=== PATIENT | male | born 1960 | race Caucasian/White ===

== ENCOUNTER 2018-07-03 16:52 | Emergency (ER) | payer OTHER ==
[~2018-07-03] VITALS: Ht 188 cm; Wt 131.7 kg
--- NOTE | 2018-07-03 17:09 | NUR ---
PT AMBULATES TO BED 2
--- NOTE | 2018-07-03 17:10 | NUR ---
58Y/M BIB C/O URINARY RETENSION AND REQUEST FOR FLOMAX WHICH HE RAN OUT; PREFER PILL OVER CATHETER. PT IS AAOX4, VSS AT THIS TIME, BED DOWN, BEDRAIL UP X 1. ER MD AWARE AND NOTIFIED OF PT STATUS AT THIS TIME. HX; BPH, HTN, BYPASS SURGERY X5 OVER 2 YRS AGO, HYPERCHOLESTEROL RX; ENALAPRIL, VASOTEX, LASIX, MTOPROLOL, TAMSULOSIN, BUMETANIDE, SIMVASTATIN ASA
[2018-07-03 17:11] VITALS: BP 164/94
[2018-07-03] MEDS ORDERED: TAMSULOSIN 0.4 MG CAP PO ONE (17:20)
[2018-07-03] MEDS ORDERED: TAMSULOSIN 0.4 MG CAP ONE (17:41)
--- NOTE | 2018-07-03 18:00 | NUR ---
Patient being evaluated by physician at bedside.
[2018-07-03 18:23] VITALS: BP 166/105
--- NOTE | 2018-07-03 18:23 | NUR ---
Patient discharged with v/s stable. Written and verbal after care instructions given and explained. Patient alert, oriented and verbalized understanding of instructions. Ambulatory with steady gait. All questions addressed prior to discharge. ID band removed. Patient advised to follow up with PMD. Rx of flomax given. Patient educated on indication of medication including possible reaction and side effects. Opportunity to ask questions provided and answered.
== END 2018-07-03 18:23 | disposition home or self-care (01) ==
LOC: MED 16:52
DX: R33.9 Retention of urine, unspecified (principal); R10.30 Lower abdominal pain, unspecified; E78.00 Pure hypercholesterolemia, unspecified; N40.0 Benign prostatic hyperplasia without lower urinary tract symptoms; F17.200 Nicotine dependence, unspecified, uncomplicated; Z95.1 Presence of aortocoronary bypass graft
CPT/HCPCS: 99283

== ENCOUNTER 2019-05-25 16:45 | Emergency (ER) | payer OTHER ==
[~2019-05-25] VITALS: Ht 185.4 cm; Wt 134.9 kg
[2019-05-25 17:05] VITALS: BP_SYST 156; BP_SYST 176; BP_DIAS 114; BP_DIAS 86
[2019-05-25] MEDS ORDERED: FUROSEMIDE 40 MG/4 ML VIAL IVP ONE (17:15)
[2019-05-25] MEDS ORDERED: ALBUTEROL SULFATE/IPRATROPIU 3 ML SOL IH ONE (17:15)
[2019-05-25] MEDS ORDERED: ALBUTEROL 0.083% 2.5 MG/3 ML NEBU INH ONE (17:15)
[2019-05-25 17:46] LABS: BASOPHILS % (AUTO) 0.4 % (0.0-2.0); EOSINOPHILS # (AUTO) 0.3 K/uL (0-0.4); HEMATOCRIT 42.1 % (36-52); HEMOGLOBIN 13.7 g/dL (12.0-18.0); LYMPHOCYTES # (AUTO) 1.9 K/uL (2.0-11.5); LYMPHOCYTES % (AUTO) 17.5 % (20.5-51.1); MEAN CORPUSCULAR HEMOGLOBIN 28 pg (27-31); MEAN CORPUSCULAR HGB CONC 33 g/dL (33-37); MEAN CORPUSCULAR VOLUME 86.2 fL (80-94); MONOCYTES # (AUTO) 0.9 K/uL (0.8-1.0); MONOCYTES % (AUTO) 8.6 % (1.7-9.3); NEUTROPHILS # (AUTO) 7.5 K/uL (1.8-7.7); NEUTROPHILS % (AUTO) 70.5 % (42.2-75.2); PLATELET COUNT (AUTO) 246 K/uL (140-450); RED BLOOD CELL COUNT(AUTO) 4.88 MIL/uL (4.20-6.10); RED CELL DISTRIBUTION WIDTH 15.2 % (11.6-13.7); WHITE BLOOD COUNT (AUTO) 10.7 K/uL (4.8-10.8)
[2019-05-25 18:08] LABS: ANION GAP 13.1 (8-16); CARBON DIOXIDE 26.9 mmol/L (21-32); CREATININE 1.5 mg/dL (0.7-1.3)
[2019-05-25 18:09] LABS: TOTAL BILIRUBIN 0.4 mg/dL (0.0-1.0)
[2019-05-25 18:56] VITALS: BP 153/92
== END 2019-05-25 18:56 | disposition home or self-care (01) ==
LOC: MED 16:45
DX: I11.0 Hypertensive heart disease with heart failure (principal); I50.9 Heart failure, unspecified; F17.210 Nicotine dependence, cigarettes, uncomplicated; Z95.1 Presence of aortocoronary bypass graft
CPT/HCPCS: 36415; 71045; 80053; 83880; 84484; 85025; 93005; 94640; 94760; 96374; 99284; J1940; J7613; J7620; Q0092

== ENCOUNTER 2019-05-30 19:10 | Inpatient (IN) | payer OTHER ==
[~2019-05-30] VITALS: Ht 188 cm; Wt 136.5 kg
[2019-05-30 19:15] VITALS: BP 109/72
--- NOTE | 2019-05-30 19:15 | NUR ---
to bed # 02 ambulatory
--- NOTE | 2019-05-30 19:20 | NUR ---
DR HANKS EXAMING PT AT THIS TIME
--- NOTE | 2019-05-30 19:20 | NUR ---
59 Y/O MALE PRESENTS TO ED, C/O DIFFICULTY BREATHING. PT STATES IT STARTED 5 DAYS AGO. PT HAS HX OF CHF, COMPLIANT WITH LASIX, NO EDEMA NOTED. PT DENIES ANY CHEST PAIN. PT PLACED ON 2L O2 SAT AT 95%. PT VSS. ERMD AWARE. WILL CONTINUE TO MONITOR.
[2019-05-30] MEDS ORDERED: ALBUTEROL 0.083% 2.5 MG/3 ML NEBU INH ONE (19:25)
[2019-05-30] MEDS ORDERED: FUROSEMIDE 40 MG/4 ML VIAL IVP ONE (19:25)
[2019-05-30] MEDS ORDERED: ALBUTEROL SULFATE/IPRATROPIU 3 ML SOL IH ONE (19:25)
--- NOTE | 2019-05-30 19:30 | NUR ---
IV LINE ESTABLISHED. PATENT AND INTACT. R FOREARM 20G. TOLERATED WELL. AND LABS COLLECTED.
--- NOTE | 2019-05-30 19:41 | NUR ---
RT AT BEDSIDE
[2019-05-30 19:56] LABS: BASOPHILS # (AUTO) 0.1 K/uL (0.00-0.22); EOSINOPHILS # (AUTO) 0.1 K/uL (0-0.4); EOSINOPHILS % (AUTO) 0.8 % (0.0-4.0); HEMATOCRIT 40.6 % (36-52); HEMOGLOBIN 13.4 g/dL (12.0-18.0); LYMPHOCYTES # (AUTO) 2.8 K/uL (2.0-11.5); LYMPHOCYTES % (AUTO) 19.7 % (20.5-51.1); MEAN CORPUSCULAR HEMOGLOBIN 29 pg (27-31); MEAN CORPUSCULAR HGB CONC 33 g/dL (33-37); MEAN CORPUSCULAR VOLUME 86.8 fL (80-94); MONOCYTES # (AUTO) 1.1 K/uL (0.8-1.0); MONOCYTES % (AUTO) 7.6 % (1.7-9.3); NEUTROPHILS % (AUTO) 70.9 % (42.2-75.2); PLATELET COUNT (AUTO) 249 K/uL (140-450); RED BLOOD CELL COUNT(AUTO) 4.68 MIL/uL (4.20-6.10); RED CELL DISTRIBUTION WIDTH 15.4 % (11.6-13.7); WHITE BLOOD COUNT (AUTO) 14.2 K/uL (4.8-10.8)
[2019-05-30 20:07] LABS: ANION GAP 14.4 (8-16); CARBON DIOXIDE 26.2 mmol/L (21-32); CREATININE 1.5 mg/dL (0.7-1.3); POTASSIUM 3.6 mmol/L (3.5-5.1)
[2019-05-30 20:13] LABS: TOTAL BILIRUBIN 0.3 mg/dL (0.0-1.0)
[2019-05-30] MEDS ORDERED: MORPHINE SULFATE 2 MG/ML SYR IVP PRN (22:20)
[2019-05-30] MEDS ORDERED: ACETAMINOPHEN 325 MG TAB PO PRN (22:20)
[2019-05-30] MEDS ORDERED: DOCUSATE SODIUM 100 MG GELCAP PO PRN (22:20)
[2019-05-30] MEDS ORDERED: ONDANSETRON 4 MG/2 ML VIAL IM/IVP PRN (22:20)
[2019-05-30] MEDS ORDERED: HYDROcodone/APAP 7.5/325 MG 1 TAB PO PRN (22:20)
--- NOTE | 2019-05-30 23:28 | NUR ---
PT LAYING ON BED. NO SOB. PT DENIES ANY CHEST PAIN. CURRENTLY ON 2L O2 VIA NC, SPO2 AT 96%. PT VSS. ERMD AWARE. WILL CONTINUE TO MONITOR.
--- NOTE | 2019-05-30 23:43 | NUR ---
PT ADMITTED TO [facility], RM [id number]. TRANSFERRED PT VIA [facility] CASTRO. REPORT GIVEN TO ALLEGRA RODRIGUEZ. PT CARE TRASNFERRED TO RECEIVING RN. Addendum: 05/31/19 at 0049 by [email or web address] PT ADMITTED TO [facility], RM [id number]. TRANSFERRED PT VIA [facility] CASTRO. REPORT GIVEN TO LV RODRIGUEZ. PT CARE TRASNFERRED TO RECEIVING MICHAEL.
--- NOTE | 2019-05-30 23:45 | NUR ---
RECEIVED BEDSIDE REPORT FROM ED RN HUNTER, FOR PT'S CONTINUITY OF CARE. PT IS ALERT, AWAKE, ORIENTED X 4, ON FINE UNHAIRER, LUNG SOUNDS ARE CLEAR, IS ON 2L OXYGEN VIA NC BREATHING IS LABORED BUT SYMMETRICAL AND NORMAL PATTERN, HAS INTERMITTENT PRODUCTIVE COUGH WITH WHITISH/YELLOWISH PHLEGM PER PT, HAS RIGHT FA 20G SALINE LOCK, IS AMBULATORY, AND PT DENIES PAIN AT THIS TIME. PT IS ON STRICT I & O. EXPLAINED TO PT SLIP COVER SEAMSTRESS ROUTINE, AND PT VERBALIZED UNDERSTANDING. BED IS ON LOW POSITION, SIDE RAILS ARE UP, CALL LIGHT IS WITHIN REACH, SEIZURE PRECAUTION IN PLACE. WILL MONITOR PT THROUGHOUT SHIFT.
[2019-05-31] VITALS: BP 136/95
[2019-05-31] MEDS: NACL 0.9% 1,000 ML IV SCH ×2 (00:07→17:53)
--- NOTE | 2019-05-31 00:07 | NUR ---
HUNG IV NORMAL SALINE AT 50ML/HR ORDERED. IV SITE PATENT AND INTACT.
[2019-05-31 00:08] LABS: CHOL/HDL RATIO 4.2 (1-4.5); MAGNESIUM 2.1 mg/dL (1.8-2.4); PHOSPHORUS 3.6 mg/dL (2.5-4.9)
[2019-05-31 00:09] LABS: THYROID STIMULATING HORMONE 1.42 uIU/mL (0.34-3.74)
[2019-05-31] MEDS ORDERED: PIPERACILLIN/TAZOBACTAM 2.25 GM VIAL IV ONE (00:48)
[2019-05-31] MEDS: PIPERACILLIN/TAZOBACTAM 2.25 GM in DEXTROSE 5% 50 ML IV SCH ×4 (00:55→23:18)
--- NOTE | 2019-05-31 00:55 | NUR ---
HUNG SCHEDULED IV ABX ORDERED. PT HAS NO REACTION TO THE ABX. WILL CONTINUE TO MONITOR PT.
[2019-05-31] MEDS ORDERED: TAMS0.4C96 PO (01:12)
[2019-05-31] MEDS ORDERED: ENAL20TA6 PO (01:12)
[2019-05-31] MEDS ORDERED: FURO-570 PO (01:12)
[2019-05-31] MEDS ORDERED: METO25TA PO (01:12)
[2019-05-31] MEDS ORDERED: SIMV40TA1 PO (01:12)
[2019-05-31] MEDS ORDERED: ASPI-1718 PO (01:12)
[2019-05-31] MEDS ORDERED: LORazepam 2 MG/ML VIAL IVP PRN (01:40)
[2019-05-31] MEDS: ALBUTEROL SULFATE/IPRATROPIU 3 ML SOL IH PRN (02:00)
--- NOTE | 2019-05-31 02:30 | NUR ---
ASSISTED PT TO RESTROOM, PT TOLERATED ACTIVITY WELL, SLIGHT INCREASE IN RESPIRATION. PT DENIES DISTRESS. WILL CONTINUE TO MONITOR PT.
[2019-05-31 04:00] VITALS: BP 145/88
--- NOTE | 2019-05-31 04:00 | NUR ---
PT AWAKE, DENIES PAIN AT THIS TIME. STILL HAVING SOB, ON 2L NC, REFUSED NON-REBREATHER MASK. VS CHECKED AND CHARTED. WILL CONTINUE TO MONITOR PT.
[2019-05-31] MEDS: LORazepam 1 MG TAB PO SCH ×3 (04:47→20:18)
--- NOTE | 2019-05-31 04:47 | NUR ---
ADMINISTERED SCHEDULED PO MEDICATION ORDERED. PT TOLERATED IT WELL. PT WENT TO THE RESTROOM, ACTIVITY TOLERATED WELL, STILL WITH SOB, REFUSED NON REBREATHER MASK. PT WANTS TO SIT UP ON BED. WILL CONTINUE TO MONITOR PT.
[2019-05-31] MEDS ORDERED: methylPREDNISolone SS 125 MG/2 ML VIAL IVP SCH (04:50)
[2019-05-31] MEDS ORDERED: methylPREDNISolone SS 125 MG/2 ML VIAL ONE (05:18)
--- NOTE | 2019-05-31 05:23 | NUR ---
PT SITTING UP IN BED, REFUSED TO PUT ON NC. STATES SITTING UP HELPS HIM BREATHE BETTER. ADMINISTERED SCHEDULED IV PUSH MEDICATION ORDERED. PT TOLERATED IT WELL. WILL CONTINUE TO MONITOR PT.
--- NOTE | 2019-05-31 06:13 | NUR ---
PT LYING DOWN WITH NO SIGNS OF RESPIRATORY DISTRESS. WILL ENDORSE TO AM SHIFT RN FOR PT'S CONTINUITY OF CARE.
--- NOTE | 2019-05-31 07:05 | NUR ---
PT RECEIVED FROM NIGHT RNNEIL. PT SLEEPING IN BED, AROUSAL TO VERBAL COMMAND. 20 G IV TO R FOREARM WITH NS AT 50ML/HR. PT SHOWS NO SIGNS OF ACUTE DISTRESS AT THIS TIME. WILL CONTINUE TO ASSESS FOR CHANGES IN CONDITION.
[2019-05-31 08:00] VITALS: BP 183/100
--- NOTE | 2019-05-31 08:00 | NUR ---
PHARMACY CONTACTED REGARDING ZOSYN DOSE DUE WHICH IS NOT IN PT CASSETTE. PHARM WILL SEND MED.
[2019-05-31 08:11] LABS: BASOPHILS # (AUTO) 0.1 K/uL (0.00-0.22); BASOPHILS % (AUTO) 0.5 % (0.0-2.0); EOSINOPHILS # (AUTO) 0.2 K/uL (0-0.4); EOSINOPHILS % (AUTO) 1.6 % (0.0-4.0); HEMOGLOBIN 14.1 g/dL (12.0-18.0); LYMPHOCYTES # (AUTO) 3.4 K/uL (2.0-11.5); MEAN CORPUSCULAR HEMOGLOBIN 28 pg (27-31); MEAN CORPUSCULAR HGB CONC 32 g/dL (33-37); MEAN CORPUSCULAR VOLUME 87.4 fL (80-94); MONOCYTES # (AUTO) 1.2 K/uL (0.8-1.0); MONOCYTES % (AUTO) 8.9 % (1.7-9.3); NEUTROPHILS # (AUTO) 8.6 K/uL (1.8-7.7); PLATELET COUNT (AUTO) 258 K/uL (140-450); RED BLOOD CELL COUNT(AUTO) 5.03 MIL/uL (4.20-6.10); RED CELL DISTRIBUTION WIDTH 15.8 % (11.6-13.7); WHITE BLOOD COUNT (AUTO) 13.5 K/uL (4.8-10.8)
[2019-05-31] MEDS: ENALAPRIL 10 MG TAB PO SCH (08:29)
[2019-05-31] MEDS: FOLIC ACID 1 MG TAB PO SCH (08:30)
[2019-05-31] MEDS: MULTIVITAMIN 1 TAB PO SCH (08:30)
[2019-05-31] MEDS: TAMSULOSIN 0.4 MG CAP PO SCH (08:30)
[2019-05-31] MEDS: METOPROLOL 25 MG TAB PO SCH ×2 (08:30→20:18)
[2019-05-31] MEDS: THIAMINE 100 MG TAB PO SCH (08:30)
[2019-05-31] MEDS: LACTULOSE 20 GM/30 ML UDC PO SCH ×2 (08:30→20:17)
[2019-05-31] MEDS: ASPIRIN 81 MG TAB.CHEW PO SCH (08:30)
[2019-05-31] MEDS: LACTOBACILLUS RHAMNOSUS GG 1 EACH CAP PO SCH (08:30)
[2019-05-31] MEDS: FUROSEMIDE 20 MG/2 ML VIAL IVP SCH ×2 (08:31→20:20)
--- NOTE | 2019-05-31 08:33 | NUR ---
PATIENT HAS BEEN SCREENED AND CATEGORIZED MODERATE NUTRITION RISK. PATIENT WILL BE SEEN WITHIN 3-5 DAYS OF ADMISSION. 06/02/[address]
[2019-05-31] MEDS ORDERED: FUROSEMIDE 40 MG TAB PO SCH (09:00)
[2019-05-31] MEDS ORDERED: NON-FORMULARY ITEM (Enalapril Maleate 20 MG) PO SCH (09:00)
--- NOTE | 2019-05-31 09:00 | NUR ---
PT IN BED. FAMILY AT BEDSIDE. PT AAOX4. NO SIGNS OF ACUTE DISTRESS AT THIS TIME. WILL CONTINUE TO ASSESS FOR CHANGES IN CONDITION.
[2019-05-31] MEDS: ALBUTEROL SULFATE/IPRATROPIU 3 ML SOL IH SCH ×3 (09:16→19:50)
[2019-05-31] MEDS: BUDESONIDE 0.5 MG/2 ML NEBU INH SCH ×2 (09:16→19:49)
--- NOTE | 2019-05-31 11:00 | NUR ---
PT IN BED. SLEEPING BUT WAKES TO VERBAL STIMULUS. FAMILY AT BEDSIDE. WILL CONTINUE TO ASSESS FOR CHANGES IN CONDITION.
[2019-05-31 11:03] LABS: MAGNESIUM 2.3 mg/dL (1.8-2.4); PHOSPHORUS 4.8 mg/dL (2.5-4.9)
[2019-05-31 11:34] LABS: POTASSIUM 4.2 mmol/L (3.5-5.1)
[2019-05-31 11:36] LABS: ANION GAP 11.1 (8-16); CARBON DIOXIDE 30.1 mmol/L (21-32); CREATININE 1.7 mg/dL (0.7-1.3)
[2019-05-31 12:01] VITALS: BP 106/64
--- NOTE | 2019-05-31 12:19 | NUR ---
SW attempted to conduct assessment with patient. Patient was asleep and did not respond to verbal commands. SW will return to complete assessment.
--- NOTE | 2019-05-31 12:22 | NUR ---
FAMILY NO LONGER AT BEDSIDE. FAMILY LEFT BUT LEFT CONTACT INFO BECAUSE THEY MAY CALL FOR UPDATES, WILL VERIFY WITH PATIENT ID FAMILY CAN GET UPDATES OVER THE PHONE. PT DID CONFIRM THAT DAUGHTER, DARCI, CAN GET INFO ABOUT HIS CONDITION.
[2019-05-31] MEDS: methylPREDNISolone SS 125 MG/2 ML VIAL IVP SCH ×2 (13:29→20:16)
--- NOTE | 2019-05-31 13:35 | NUR ---
PT SLEEPING IN BED. PT WOKE TO VERBAL STIMULI. PT AMBULATED TO RESTROOM WITH STEADY GAIT. PT RECEIVED ORDERED MEDICATIONS AND TEACHING.
--- NOTE | 2019-05-31 14:00 | NUR ---
[address] VIRAMONTES. PT IN BED, SLEEPING. NO SIGNS OF ACUTE DISTRESS AT THIS TIME. WILL CONTINUE TO ASSESS FOR CHANGES IN CONDITION.
[2019-05-31 16:00] VITALS: BP 146/89
--- NOTE | 2019-05-31 17:11 | NUR ---
PT IN BED SLEEPING. PT'S DENTURES WERE ON PT'S CHEST. DENTURES PUT INTO LABELED DENTURE CONTAINER AND PLACED ON PT'S SIDE TABLE. BREATHING EVEN AND UNLABORED. AWOKE TO VERBAL STIMULI. NO SIGNS OF ACUTE DISTRESS AT THIS TIME. WILL CONTINUE TO ASSESS FOR CHANGES IN CONDITION.
--- NOTE | 2019-05-31 18:14 | NUR ---
PT SITTING AT BEDSIDE EATING DINNER. AAOX4. NO SIGNS OF ACUTE DISTRESS AT THIS TIME. WILL CONTINUE TO ASSESS FOR CHANGES IN CONDITION.
--- NOTE | 2019-05-31 19:10 | NUR ---
PT ENDORSED TO NIGHT RNDON. PT IN BED SLEEPING. IV TO R FOREARM RUNNING NS AT 50 ML/HR. BREATHING EVEN AND UNLABORED, NO SIGNS OF ACUTE DISTRESS AT THIS TIME.
--- NOTE | 2019-05-31 19:15 | NUR ---
RECEIVED PT SLEEPING, EASILY AROUSABLE, AAOX4, VITAL SIGNS TAKEN, ST ON TELE-106 BPM, DENIES ANY PAIN, NO SOB NOTED, IVF INFUSING WELL, PLAN OF CARE DISCUSSED, SAFETY MEASURES IN PLACE, CALL LIGHT WITHIN REACH.
--- NOTE | 2019-05-31 19:45 | NUR ---
AMBULATORY TO BR WITH STEADY GAIT, REINFORCED TO USE URINAL FOR STRICT I & O, VERBALIZED UNDERSTANDING, VOIDED FREELY, PT REQUESTING FOR SNACKS, WILL PROVIDE.
[2019-05-31 20:00] VITALS: BP 146/85
[2019-05-31] MEDS: SIMVASTATIN 40 MG TAB PO SCH (20:18)
--- NOTE | 2019-05-31 20:30 | NUR ---
DUE MEDS ADMINISTERED WITH EDUCATION PROVIDED, URINAL IN THE TOILET EMPTY, PT STATED HE DIRECTLY URINATED ON THE TOILET, REINFORCE STRICT I&O TO PT, VERBALIZED UNDERSTANDING, ALL NEEDS ATTENDED.
--- NOTE | 2019-05-31 21:40 | NUR ---
SEEN PT AMBULATING ON THE HALLWAY WITH STEADY, SLIGHT TACHYPNEA NOTED ON EXERTION, ADVISED TO GO BACK TO BED, COMPLIANT, MONITORED CLOSELY.
[2019-06-01] VITALS: BP 143/87
--- NOTE | 2019-06-01 | NUR ---
PT SLEEPING, EASILY AROUSABLE, VITAL SIGNS STABLE, DENIES ANY PAIN, NO SOB NOTED, ZOSYN IVPB INFUSING WELL, CONTINUE TO MONITOR CLOSELY.
[2019-06-01 00:51] LABS: APPEARANCE,URINE CLEAR (CLEAR); BILIRUBIN,URINE NEGATIVE (NEGATIVE); BLOOD, URINE NEGATIVE (NEGATIVE); COLOR,URINE YELLOW (YELLOW); LEUKOCYTE ESTERASE ,URINE NEGATIVE (NEGATIVE); NITRITE, URINE NEGATIVE (NEGATIVE); PH,URINE 5.5 (5.0-9.0); UGLUCOSE 3+ (NEGATIVE)
[2019-06-01 00:58] LABS: BARBITURATE, URINE NEG. ng/ml (NEG <=200); BENZODIAZEPINE, URINE NEG. ng/mL (NEG <=200); CANNABINOID, URINE NEG. ng/mL (NEG <=50); COCAINE, URINE NEG. ng/mL (NEG <=300); OPIATE, URINE NEG. ng/mL (NEG <=2000); PHENCYCLIDINE SCREEN,URINE NEG. ng/mL (NEG <=25)
[2019-06-01 01:07] LABS: RBC,URINE NONE SEEN /HPF (0-5); WBC,URINE 0-5 /HPF (0-5)
--- NOTE | 2019-06-01 01:30 | NUR ---
PT AWAKE REQUESTING FOR SANDWICHES AND JUICES, PT EDUCATED TO LIMIT HIS FLUID INTAKE, SANDWICH PROVIDED.
[2019-06-01 04:30] VITALS: BP 159/97
[2019-06-01] MEDS: LORazepam 1 MG TAB PO SCH ×3 (04:36→20:35)
--- NOTE | 2019-06-01 04:40 | NUR ---
PT ACCIDENTALLY PULLED OUT IV LINE, NEW IV STARTED AT RT HAND, PT RESTLESS WITH HURRIED SPEECH, VITAL SIGNS TAKEN, BP SLIGHTLY ELEVATED -159/97, DENIES CHEST PAIN, NO SOB NOTED, DR BILL MADE AWARE, WILL GIVE DUE ATIVAN PO, PUDDING GIVEN PER REQUEST, WENT BACK TO SLEEP AFTER EATING, MONITORED CLOSELY.
--- NOTE | 2019-06-01 05:30 | NUR ---
PT DISCONNECTED HIMSELF FROM HIS IV LINE AND AMBULATED TO BR, BLOOD EVERYWHERE, LINEN AND GOWN CHANGED, IV LINE RE-TAPED AND WRAPPED WITH ROLLED GAUZE, EDUCATE PT TO BRING IV PUMP TO THE TOILET, PT STATED PREFER TO BE DISCONNECTED INSTEAD, REINFORCED TO WAIT FOR NURSE TO DISCONNECT HIM, VERBALIZED UNDERSTANDING.
[2019-06-01] MEDS: methylPREDNISolone SS 125 MG/2 ML VIAL IVP SCH (05:41)
--- NOTE | 2019-06-01 06:39 | NUR ---
PT SEEN AMBULATING ON THE HALLWAY GOING TO THE [place], PT EDUCATED THAT HE CANNOT GOT TO [place], PT STATED HE IS STARVING, TOLD PT THAT BREAKFAST WILL BE HERE AT 0730 BUT STATED HE CANNOT WAIT THAT LONG, PUDDING GIVEN FOR NOW, NO SEIZURE ACTIVITY THE WHOLE, MONITORED CLOSELY.
[2019-06-01] MEDS: ALBUTEROL SULFATE/IPRATROPIU 3 ML SOL IH SCH ×3 (07:03→20:14)
[2019-06-01] MEDS: BUDESONIDE 0.5 MG/2 ML NEBU INH SCH ×2 (07:04→20:14)
--- NOTE | 2019-06-01 07:20 | NUR ---
PT AWAKE PRESENTLY GETTING BREATHING TX, NO DISTRESS NOTED, REPORT GIVEN TO MICHAEL BRADFORD FOR CONTINUITY OF CARE.
--- NOTE | 2019-06-01 07:30 | NUR ---
RECEIVED PT AAOX4. NO SOB NOTED, ON ROOM AIR WITH SATS AT 92%. NO C/O PAIN AT THIS TIME. IV TO RT HAND PATENT AND INTACT. CHEST DIMINISHED AIR ENTRY TO THE BASES. ABDOMEN SOFT, BOWEL SOUNDS PRESENT. INSTRUCTED PT TO CALL FOR ASSISTANCE. CALL LIGHT WITHIN REACH, PT VERBALIZED UNDERSTANDING.
[2019-06-01 07:38] LABS: BASOPHILS % (AUTO) 0.2 % (0.0-2.0); HEMATOCRIT 42.6 % (36-52); HEMOGLOBIN 13.8 g/dL (12.0-18.0); LYMPHOCYTES # (AUTO) 1.9 K/uL (2.0-11.5); LYMPHOCYTES % (AUTO) 9.8 % (20.5-51.1); MEAN CORPUSCULAR HEMOGLOBIN 28 pg (27-31); MEAN CORPUSCULAR HGB CONC 32 g/dL (33-37); MONOCYTES # (AUTO) 0.6 K/uL (0.8-1.0); MONOCYTES % (AUTO) 3.2 % (1.7-9.3); NEUTROPHILS # (AUTO) 16.9 K/uL (1.8-7.7); NEUTROPHILS % (AUTO) 86.8 % (42.2-75.2); PLATELET COUNT (AUTO) 280 K/uL (140-450); RED CELL DISTRIBUTION WIDTH 15.6 % (11.6-13.7); WHITE BLOOD COUNT (AUTO) 19.4 K/uL (4.8-10.8)
[2019-06-01 07:42] LABS: ANION GAP 13.8 (8-16); CARBON DIOXIDE 27.6 mmol/L (21-32); CREATININE 1.5 mg/dL (0.7-1.3); POTASSIUM 4.4 mmol/L (3.5-5.1)
[2019-06-01 07:45] LABS: MAGNESIUM 2.3 mg/dL (1.8-2.4); PHOSPHORUS 2.6 mg/dL (2.5-4.9)
[2019-06-01 08:00] VITALS: BP 187/98
[2019-06-01] MEDS: PIPERACILLIN/TAZOBACTAM 2.25 GM in DEXTROSE 5% 50 ML IV SCH ×3 (08:33→23:37)
[2019-06-01] MEDS: LACTOBACILLUS RHAMNOSUS GG 1 EACH CAP PO SCH (08:33)
[2019-06-01] MEDS: METOPROLOL 25 MG TAB PO SCH ×2 (08:33→20:35)
[2019-06-01] MEDS: TAMSULOSIN 0.4 MG CAP PO SCH (08:34)
[2019-06-01] MEDS: ASPIRIN 81 MG TAB.CHEW PO SCH (08:34)
[2019-06-01] MEDS: THIAMINE 100 MG TAB PO SCH (08:34)
[2019-06-01] MEDS: MULTIVITAMIN 1 TAB PO SCH (08:34)
[2019-06-01] MEDS: ENALAPRIL 10 MG TAB PO SCH (08:34)
[2019-06-01] MEDS: FOLIC ACID 1 MG TAB PO SCH (08:36)
--- NOTE | 2019-06-01 09:45 | NUR ---
ASSISTED PT TO THE BATHROOM WITH STANDBY ASSIST. ACTIVITY TOLERATED WELL. MINIMAL SHAKING NOTED ON PT'S HANDS. ON ATIVAN PO RTC FOR ANXIETY. WILL CONTINUE TO MONITOR.
[2019-06-01] MEDS ORDERED: hydrALAZINE 20 MG/ML VIAL IVP PRN (11:25)
[2019-06-01] MEDS ORDERED: amLODIPine 5 MG TAB PO SCH (11:38)
[2019-06-01 12:00] VITALS: BP 160/99
--- NOTE | 2019-06-01 12:00 | NUR ---
PT AWAKE, EATING LUNCH. NO SOB NOTED. DENIES PAIN.
[2019-06-01] MEDS: NACL 0.9% 1,000 ML IV SCH ×2 (12:54→20:36)
--- NOTE | 2019-06-01 14:00 | NUR ---
PT FOUND WALKING BY ICU STAFF NEAR ICU. SECURITY CALLED, PT ESCORTED BACK TO HIS ROOM. PT WALKING WITH STEADY GAIT. PT STATED HE WANTED TO GO TO THE [place] TO GET SOME JUNK FUNK. EDUCATED PT THAT PT'S ARE NOT ALLOWED IN THE [place] AND THAT HE IS ON CARDIAC DIET. PT VERBALIZED UNDERSTANDING.
[2019-06-01 16:00] VITALS: BP 153/88
--- NOTE | 2019-06-01 16:00 | NUR ---
VITALS SIGNS TAKEN, BP IS STILL ELEVATED BUT DOES NOT REQUIRE PRN HYDRALAZINE. PT ASYMPTOMATIC DENIES PAIN.
--- NOTE | 2019-06-01 18:05 | NUR ---
PT CONSUMED 100% OF ALL MEAL SERVED. FOOD TOLERATED WELL.
[2019-06-01] MEDS: methylPREDNISolone SS 40 MG/ML VIAL IVP SCH (18:22)
--- NOTE | 2019-06-01 18:50 | NUR ---
PT SLEEPING. NO SOB NOTED. NO COMPLAINTS MADE. WILL ENDORSE TO NEXT SHIFT NURSE FOR CONTINUITY OF CARE.
--- NOTE | 2019-06-01 19:15 | NUR ---
RECEIVED BEDSIDE REPORT FROM DAY SHIFT NURSE. PATIENT IS AWAKE, ALERT, AND COOPERATIVE. RESPIRATION EVEN UNLABORED ON ROOM AIR. NO DISTRESS NOTED. SKIN IS WARM AND DRY. IV PATENT AND INTACT. DENIES PAIN. FAMILY AT BEDSIDE. PLAN OF CARE WAS DISCUSSED. ALL SAFETY MEASURES IN PLACE. BED IS AT LOW POSITION. CALL LIGHT WITHIN REACH. WILL CONTINUE TO MONITOR.
[2019-06-01 20:00] VITALS: BP 178/100
--- NOTE | 2019-06-01 20:00 | NUR ---
INITIAL ASSESSMENT DONE. VITALS WERE TAKEN. PATIENT IN STABLE CONDITION. NO DISTRESS NOTED. CALL LIGHT WITHIN REACH. WILL CONTINUE TO MONITOR.
--- NOTE | 2019-06-01 20:30 | NUR ---
ALL SCHEDULED MEDS WERE GIVEN PER ORDER. NO ASE NOTED. WILL CONTINUE TO MONITOR.
[2019-06-01] MEDS: SIMVASTATIN 40 MG TAB PO SCH (20:35)
--- NOTE | 2019-06-01 21:11 | NUR ---
PATIENT BP 172/95 HR 95 ADMINISTERED HYDRALAZINE PER ORDER. WILL CONTINUE TO MONITOR.
--- NOTE | 2019-06-01 22:28 | NUR ---
RECHECKED VITALS. PATIENT BP 158/95 HR 95. WILL CONTINUE TO MONITOR.
--- NOTE | 2019-06-01 23:57 | NUR ---
VITALS WERE TAKEN. PATIENT IN STABLE CONDITION. NO DISTRESS NOTED. CALL LIGHT WITHIN REACH. WILL CONTINUE TO MONITOR.
[2019-06-02] VITALS: BP 151/78
--- NOTE | 2019-06-02 00:41 | NUR ---
PATIENT WOKE UP AND REQUESTING FOR SANDWICHES AND JUICES. EDUCATED TO LIMIT HIS FLUID INTAKE. INSTRUCT TO USE THE URINAL CAZARES IN ORDER TO MONITOR I& O. SANDWICH PROVIDED. WILL CONTINUE TO MONITOR.
--- NOTE | 2019-06-02 02:00 | NUR ---
CHECKED PATIENT. PATIENT SLEEPING RESPIRATION EVEN UNLABORED ON ROOM AIR. NO DISTRESS NOTED. CALL LIGHT WITHIN REACH. WILL CONTINUE TO MONITOR.
[2019-06-02 04:00] VITALS: BP 158/90
--- NOTE | 2019-06-02 04:00 | NUR ---
VITALS WERE TAKEN. PATIENT IN STABLE CONDITION. NO DISTRESS NOTED. CALL LIGHT WITHIN REACH. WILL CONTINUE TO MONITOR.
[2019-06-02] MEDS: LORazepam 1 MG TAB PO SCH (04:30)
[2019-06-02] MEDS: methylPREDNISolone SS 40 MG/ML VIAL IVP SCH (04:30)
[2019-06-02] MEDS: ALBUTEROL SULFATE/IPRATROPIU 3 ML SOL IH PRN (04:44)
--- NOTE | 2019-06-02 06:33 | NUR ---
PATIENT IS HUNGRY AND REQUESTING FOR SANDWICHES AND JUICES. SANDWICH AND JUICE PROVIDED.
[2019-06-02] MEDS: NACL 0.9% 1,000 ML IV SCH (06:54)
--- NOTE | 2019-06-02 07:09 | NUR ---
ENDORSED PATIENT TO DAY SHIFT NURSE FOR CONTINUITY OF CARE. PATIENT IN STABLE CONDITION.
--- NOTE | 2019-06-02 07:10 | NUR ---
PT RECEIVED FROM NIGHT RNZELDA. PT IN BED SLEEPING. PT AWAKES TO VERBAL STIMULI. NO SIGNS OF ACUTE DISTRESS AT THIS TIME. WILL CONTINUE TO ASSESS FOR CHANGES IN CONDITION.
[2019-06-02] MEDS: BUDESONIDE 0.5 MG/2 ML NEBU INH SCH (07:22)
[2019-06-02] MEDS: ALBUTEROL SULFATE/IPRATROPIU 3 ML SOL IH SCH (07:22)
[2019-06-02 08:00] VITALS: BP 169/96
[2019-06-02] MEDS: PIPERACILLIN/TAZOBACTAM 2.25 GM in DEXTROSE 5% 50 ML IV SCH (08:37)
[2019-06-02] MEDS: LACTOBACILLUS RHAMNOSUS GG 1 EACH CAP PO SCH (08:40)
[2019-06-02] MEDS: ASPIRIN 81 MG TAB.CHEW PO SCH (08:40)
[2019-06-02] MEDS: MULTIVITAMIN 1 TAB PO SCH (08:40)
[2019-06-02] MEDS: METOPROLOL 25 MG TAB PO SCH (08:41)
[2019-06-02] MEDS: FOLIC ACID 1 MG TAB PO SCH (08:41)
[2019-06-02] MEDS: TAMSULOSIN 0.4 MG CAP PO SCH (08:41)
[2019-06-02] MEDS: THIAMINE 100 MG TAB PO SCH (08:41)
--- NOTE | 2019-06-02 08:52 | NUR ---
PT RECEIVED MORNING MEDICATIONS. AAOX4. TOLERATED MEDICATION ADMINISTRATION. ALBUTEROL MED FROM 05/30 WHICH WAS NOT ADMINISTERED WAS ENTERED NOT ADMINISTERED AFTER TALKING TO FAUSTO FROM RT. MED WAS PAST DUE FOR THREE DAYS AND NEVER ADMINISTERED.
[2019-06-02] MEDS ORDERED: amLODIPine 5 MG TAB PO SCH (09:00)
[2019-06-02 09:38] LABS: BASOPHILS % (AUTO) 0.2 % (0.0-2.0); HEMATOCRIT 41.3 % (36-52); HEMOGLOBIN 13.4 g/dL (12.0-18.0); LYMPHOCYTES # (AUTO) 1.2 K/uL (2.0-11.5); LYMPHOCYTES % (AUTO) 5.8 % (20.5-51.1); MEAN CORPUSCULAR HEMOGLOBIN 28 pg (27-31); MEAN CORPUSCULAR HGB CONC 32 g/dL (33-37); MEAN CORPUSCULAR VOLUME 87.4 fL (80-94); MONOCYTES # (AUTO) 0.6 K/uL (0.8-1.0); NEUTROPHILS # (AUTO) 18.7 K/uL (1.8-7.7); PLATELET COUNT (AUTO) 243 K/uL (140-450); RED BLOOD CELL COUNT(AUTO) 4.72 MIL/uL (4.20-6.10); RED CELL DISTRIBUTION WIDTH 15.9 % (11.6-13.7)
--- NOTE | 2019-06-02 09:40 | NUR ---
OUTSIDE FOOD FROM [employer] [facility] BROUGHT IN BY FEMALE FRIEND. PT GIVEN EDUCATION ABOUT ONLY EATING HOSPITAL FOOD BECAUSE DIET IS TAILORED TO CARDIAC NEEDS. PT STATED "THIS IS GOOD FOR MY HEART."
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
--- NOTE | 2019-06-02 10:00 | NUR ---
DR. TRUJILLO SPOKE TO PT AND ADVISED THAT HE NOT LEAVE BECAUSE TREATMENT WAS NOT COMPLETE. PT WAS INFORMED THAT HIS CONDITION COULD WORSEN AND EVEN RESULT IN . PT STATED HE WAS LEAVING NO MATTER WHAT BECAUSE HE NEEDED TO SMOKE.
--- NOTE | 2019-06-02 10:13 | NUR ---
PT IV REMOVED, CATHETER INTACT. PT CHANGED AND TOOK ALL BELONGINGS WITH HIM. PT DAUGHTER CALLED PT WAS LEAVING. PT STATED IT WAS OK TO INFORM DAUGHTER DARCI THAT HE WAS LEAVING AMA. PT WAS ADVISED TO RETURN TO ED OR DIAL 911 IF SYMPTOMS WORSEN. PT STATED HE WOULD WALK HOME BUT MAY BE ABLE TO DRIVE HOME.
[2019-06-02 10:28] LABS: WHITE BLOOD COUNT (AUTO) 20.5 K/uL (4.8-10.8)
[2019-06-02 11:30] LABS: ANION GAP 12.2 (8-16); CREATININE 1.5 mg/dL (0.7-1.3); POTASSIUM 4.2 mmol/L (3.5-5.1)
[2019-06-02 11:44] LABS: MAGNESIUM 2.3 mg/dL (1.8-2.4); PHOSPHORUS 2.3 mg/dL (2.5-4.9)
== END 2019-06-02 10:49 | disposition left against medical advice (07) | DRG 441 ==
LOC: MED 19:10 → MTU 22:17
PROVIDERS: ADMIT General Practice; ATTEND General Practice
DX: K72.90 Hepatic failure, unspecified without coma (principal); N17.0 Acute kidney failure with tubular necrosis; J96.20 Acute and chronic respiratory failure, unspecified whether with hypoxia or hypercapnia; J44.1 Chronic obstructive pulmonary disease with (acute) exacerbation; F10.239 Alcohol dependence with withdrawal, unspecified; M94.0 Chondrocostal junction syndrome [Tietze]; K21.9 Gastro-esophageal reflux disease without esophagitis; Y90.0 Blood alcohol level of less than 20 mg/100 ml; I50.9 Heart failure, unspecified; I11.0 Hypertensive heart disease with heart failure; F17.210 Nicotine dependence, cigarettes, uncomplicated; E78.5 Hyperlipidemia, unspecified; E78.1 Pure hyperglyceridemia; F15.10 Other stimulant abuse, uncomplicated; R73.9 Hyperglycemia, unspecified; Z86.73 Personal history of transient ischemic attack (TIA), and cerebral infarction without residual deficits; Z95.1 Presence of aortocoronary bypass graft; Z90.49 Acquired absence of other specified parts of digestive tract
CPT/HCPCS: 36415; 71045; 80048; 80053; 80305; 81001; 82140; 82150; 83036; 83605; 83690; 83735; 83880; 84100; 84436; 84443; 84484; 85025; 87040; 87070; 87081; 87086; 87205; 93005; 94640; 96374; 99285; G0482; J0360; J1644; J1940; J2543; J2920; J2930; J7030; J7060; J7620; J7626

== ENCOUNTER 2023-02-14 19:10 | Emergency (ER) | payer OTHER ==
[~2023-02-14] VITALS: Ht 188 cm; Wt 132.4 kg
[~2023-02-14 19:10] MED LIST: ASPI-1822 PO; ENAL20TA40 PO; FURO-570 PO; METO25TA PO; SIMV-373 PO; TAMS0.4C96 PO
[2023-02-14 19:45] VITALS: BP 195/98
--- NOTE | 2023-02-14 19:50 | NUR ---
Patient taken to bed 11.
--- NOTE | 2023-02-14 19:58 | NUR ---
Dr. Avila examining patient.
--- NOTE | 2023-02-14 20:00 | NUR ---
Dr. Avila examining patient.
--- NOTE | 2023-02-14 20:01 | NUR ---
MAYES INSERTED PT TOLERATED WELL
[2023-02-14 20:11] VITALS: BP 195/98
[2023-02-14 20:14] LABS: APPEARANCE,URINE CLEAR (CLEAR); BILIRUBIN,URINE 1+ (NEGATIVE); BLOOD, URINE 3+ (NEGATIVE); COLOR,URINE YELLOW (YELLOW); LEUKOCYTE ESTERASE ,URINE 2+ (NEGATIVE); NITRITE, URINE POSITIVE (NEGATIVE); PH,URINE 6.5 (5.0-9.0); UGLUCOSE NEGATIVE (NEGATIVE)
[2023-02-14] MEDS ORDERED: CEPH-588 PO (21:13)
[2023-02-14 21:14] LABS: RBC,URINE TOO NUMEROUS TO COUN /HPF (0-5)
[2023-02-14] MEDS ORDERED: cephALEXin 500 MG CAP PO ONE (21:15)
--- NOTE | 2023-02-14 21:44 | NUR ---
Patient discharged with v/s stable. Written and verbal after care instructions given and explained. Patient verbalized understanding. Ambulatory with steady gait. All questions addressed prior to discharge. Advised to follow up with PMD.
== END 2023-02-14 21:44 | disposition home or self-care (01) ==
LOC: MED 19:10
DX: R33.9 Retention of urine, unspecified (principal); N39.0 Urinary tract infection, site not specified; I11.0 Hypertensive heart disease with heart failure; Z46.6 Encounter for fitting and adjustment of urinary device; Z86.73 Personal history of transient ischemic attack (TIA), and cerebral infarction without residual deficits; Z79.899 Other long term (current) drug therapy
CPT/HCPCS: 51702; 81001; 87086; 99284

== ENCOUNTER 2023-03-10 17:36 | Emergency (ER) | payer OTHER ==
[~2023-03-10] VITALS: Ht 188 cm; Wt 129.3 kg
[~2023-03-10 17:36] MED LIST changes: +CEPH-588 PO
[2023-03-10 17:51] VITALS: BP 147/79; PULSE 76; RESP 20; TEMP 98.3; O2SAT 99
--- NOTE | 2023-03-10 18:30 | NUR ---
62 Y/O MALE BIB SPOUSE AND BROTHER, PATIENT PRESENTS TO ED WITH REQUEST TO CHANGE MAYES CATH DUE TO LACK OF DRAINAGE. DENIES N/V/D; SKIN IS PINK/WARM/DRY; AAOX4 SLURRED SPEECH, AMBULATES WITH ASSIST. PER FAMILY AND PT, STATES HE HAS BEEN DRINKING AT HOME ETOH; LUNGS CLEAR; PT DENIES ANY FEVER, CP, SOB, OR COUGH AT THIS TIME; PATIENT STATES PAIN OF 0/10 AT THIS TIME; PATIENT POSITIONED FOR COMFORT; HOB ELEVATED; BEDRAILS UP X2; BED DOWN. ER MD MADE AWARE OF PT STATUS.
--- NOTE | 2023-03-10 18:35 | NUR ---
URINE DRAINED 20ML AFTER OLD BAG WAS REMOVED. NEW LEG BAG REPLACED AT THIS TIME. ERMD MADE AWARE
--- NOTE | 2023-03-10 19:39 | NUR ---
Pt report given to REID RODRIGUEZ. Transfer of care at this time.
[2023-03-10 19:51] VITALS: BP 135/71; PULSE 82; RESP 18; TEMP 98.2; O2SAT 99
== END 2023-03-10 19:51 | disposition home or self-care (01) ==
LOC: MED 17:36
DX: T83.038A Leakage of other urinary catheter, initial encounter (principal); I11.0 Hypertensive heart disease with heart failure; I50.9 Heart failure, unspecified; J44.9 Chronic obstructive pulmonary disease, unspecified; Z86.73 Personal history of transient ischemic attack (TIA), and cerebral infarction without residual deficits; Z98.890 Other specified postprocedural states; Z79.899 Other long term (current) drug therapy; Z79.2 Long term (current) use of antibiotics; Z79.82 Long term (current) use of aspirin; Y84.6 Urinary catheterization as the cause of abnormal reaction of the patient, or of later complication, without mention of misadventure at the time of the procedure
CPT/HCPCS: 99281

== ENCOUNTER 2023-03-29 05:20 | Emergency (ER) | payer OTHER ==
[~2023-03-29] VITALS: Ht 188 cm; Wt 129.3 kg
--- NOTE | 2023-03-29 05:29 | NUR ---
PT TAKEN TO BED 9
[2023-03-29 05:30] VITALS: BP 139/82; PULSE 75; RESP 20; TEMP 98; O2SAT 96
--- NOTE | 2023-03-29 06:15 | NUR ---
Inserted Starr catheter and drained 900cc cloudy urine. Attached Starr catheter to leg bag. Patient tolerated procedure well. No complaints of pain or signs of acute distress at this time. Side rails up and call light within reach.
--- NOTE | 2023-03-29 06:39 | NUR ---
Patient is a 62/M, known case of BPH, who came in due to urinary retention associated with suprapubic tenderness after indwelling catheter of 4 months was removed by 4 days ago. PMHx: CHF, CVA, BPH NKA
--- NOTE | 2023-03-29 06:42 | NUR ---
Dr. Sandoval examining patient.
--- NOTE | 2023-03-29 07:21 | NUR ---
Pt report given to Yessi RODRIGUEZ. Transfer of care at this time.
[2023-03-29 08:08] LABS: APPEARANCE,URINE CLOUDY (CLEAR); BILIRUBIN,URINE NEGATIVE (NEGATIVE); BLOOD, URINE 2+ (NEGATIVE); COLOR,URINE YELLOW (YELLOW); NITRITE, URINE POSITIVE (NEGATIVE); UGLUCOSE 3+ (NEGATIVE)
--- NOTE | 2023-03-29 08:14 | NUR ---
CONTINUE TO AWAIT UA RESULT.
[2023-03-29 08:17] LABS: LEUKOCYTE ESTERASE ,URINE 4+ (NEGATIVE)
[2023-03-29 08:19] LABS: CALCIUM OXALATE CRYSTALS,UR None Seen /HPF (None Seen); COARSE GRANULAR CASTS,URINE None Seen /LPF (None Seen); FINE GRANULAR CASTS,URINE None Seen /LPF (None Seen); HYALINE CASTS, URINE None Seen /LPF (None Seen); OTHER CASTS, URINE None Seen /LPF (None Seen); OTHER CRYSTALS,URINE None Seen /HPF (None Seen); RED BLOOD CELL CASTS,URINE None Seen /LPF (None Seen); TRICHOMONAS,URINE None Seen /HPF (None Seen); TRIPLE PHOSPHATE CRYSTAL,UR None Seen /HPF (None Seen); URIC ACID CRYSTALS,URINE None Seen /HPF (None Seen); URINE AMORPHOUS URATE None Seen /HPF (None Seen); WAXY CASTS,URINE None Seen /LPF (None Seen); YEAST,URINE None Seen /HPF (None Seen)
--- NOTE | 2023-03-29 08:29 | NUR ---
PT SLEEPING. SR WITH OCCASSIONAL PVC NOTED. NO DISTRESS NOTED. VS STABLE.
[2023-03-29] MEDS ORDERED: CIPR500T4 PO (08:35)
[2023-03-29 08:50] VITALS: BP 120/85; PULSE 72; RESP 16; TEMP 98.1; O2SAT 97
--- NOTE | 2023-03-29 08:50 | NUR ---
Patient discharged with v/s stable. Written and verbal after care instructions given and explained. Understants how to use leg bag. Patient alert, oriented and verbalized understanding of instructions. Ambulatory with steady gait. All questions addressed prior to discharge. ID band removed. Patient advised to follow up with PMD. Rx of Ciprofloxacin given. Patient educated on indication of medication including possible reaction and side effects. Opportunity to ask questions provided and answered. Pt instructed to return if condition worsens.
== END 2023-03-29 08:50 | disposition home or self-care (01) ==
LOC: MED 05:20
DX: N30.01 Acute cystitis with hematuria (principal); R33.9 Retention of urine, unspecified; J44.9 Chronic obstructive pulmonary disease, unspecified; I50.9 Heart failure, unspecified; I11.0 Hypertensive heart disease with heart failure; Z86.73 Personal history of transient ischemic attack (TIA), and cerebral infarction without residual deficits; Z79.899 Other long term (current) drug therapy
CPT/HCPCS: 51702; 81001; 87086; 99284

== ENCOUNTER 2023-07-02 06:35 | Emergency (ER) | payer OTHER ==
[~2023-07-02] VITALS: Ht 188 cm; Wt 124.7 kg
[~2023-07-02 06:35] MED LIST changes: +CIPR500T4 PO
[2023-07-02 06:46] VITALS: BP 148/86; PULSE 86; RESP 20; TEMP 96.4; O2SAT 100
[2023-07-02 07:57] LABS: BASOPHILS % (AUTO) 0.3 % (0.0-2.0); EOSINOPHILS % (AUTO) 0.4 % (0.0-4.0); HEMATOCRIT 46.1 % (36-52); HEMOGLOBIN 15.3 g/dL (12.0-18.0); LYMPHOCYTES # (AUTO) 0.7 K/uL (2.0-11.5); LYMPHOCYTES % (AUTO) 7.9 % (20.5-51.1); MEAN CORPUSCULAR HEMOGLOBIN 30 pg (27-31); MEAN CORPUSCULAR HGB CONC 33 g/dL (33-37); MEAN CORPUSCULAR VOLUME 91.4 fL (80-94); MONOCYTES # (AUTO) 0.4 K/uL (0.8-1.0); MONOCYTES % (AUTO) 5.3 % (1.7-9.3); NEUTROPHILS # (AUTO) 7.3 K/uL (1.8-7.7); NEUTROPHILS % (AUTO) 86.1 % (42.2-75.2); PLATELET COUNT (AUTO) 74 K/uL (140-450); RED BLOOD CELL COUNT(AUTO) 5.04 MIL/uL (4.20-6.10); RED CELL DISTRIBUTION WIDTH 18.9 % (11.6-13.7); WHITE BLOOD COUNT (AUTO) 8.4 K/uL (4.8-10.8)
[2023-07-02 08:04] LABS: BILIRUBIN,URINE NEGATIVE (NEGATIVE); BLOOD, URINE 3+ (NEGATIVE); LEUKOCYTE ESTERASE ,URINE TRACE (NEGATIVE); NITRITE, URINE POSITIVE (NEGATIVE); PH,URINE 6.5 (5.0-9.0); PROTEIN,URINE 3+ (NEGATIVE); UGLUCOSE 2+ (NEGATIVE)
[2023-07-02 08:08] LABS: APPEARANCE,URINE CLOUDY (CLEAR)
[2023-07-02 08:09] LABS: COLOR,URINE BROWN (YELLOW)
[2023-07-02 08:11] LABS: ALBUMIN 3.8 g/dL (3.4-5.0); ANION GAP 16.1 (8-16); CALCIUM 8.6 mg/dL (8.5-10.1); CARBON DIOXIDE 26.5 mmol/L (21-32); CREATININE 1.3 mg/dL (0.6-1.3); POTASSIUM 3.6 mmol/L (3.5-5.1); TOTAL BILIRUBIN 0.7 mg/dL (0.0-1.0); TOTAL PROTEIN, SERUM 7.6 g/dL (6.4-8.2)
[2023-07-02 08:12] LABS: AMPHETAMINE, URINE POSITIVE ng/ml (NEG <=1000); BARBITURATE, URINE NEGATIVE ng/ml (NEG <=200); BENZODIAZEPINE, URINE NEGATIVE ng/mL (NEG <=200); CANNABINOID, URINE NEGATIVE ng/mL (NEG <=50); COCAINE, URINE NEGATIVE ng/mL (NEG <=300); OPIATE, URINE NEGATIVE ng/mL (NEG <=2000); PHENCYCLIDINE SCREEN,URINE NEGATIVE ng/mL (NEG <=25)
[2023-07-02 08:14] LABS: RBC,URINE 20-50 /HPF (0-5)
[2023-07-02 08:15] LABS: BACTERIA,URINE 10-30 (MOD) /HPF (None Seen); SQUAMOUS EPITHELIAL CELL,UR 0-3 (FEW) /LPF (0-3 (FEW))
[2023-07-02] MEDS ORDERED: cefTRIAXone 1,000 MG VIAL ONE (09:22)
[2023-07-02 09:23] VITALS: O2SAT 100
[2023-07-02] MEDS ORDERED: CEPH-588 PO (09:37)
[2023-07-02 11:15] VITALS: BP 136/82; PULSE 81; RESP 20; TEMP 97.8
[2023-07-02 11:22] VITALS: O2SAT 100
[2023-07-04] MEDS ORDERED: CIPR500T4 PO (14:40)
== END 2023-07-02 11:56 | disposition home or self-care (01) ==
LOC: MED 06:35
DX: R33.9 Retention of urine, unspecified (principal); T83.098A Other mechanical complication of other urinary catheter, initial encounter; N39.0 Urinary tract infection, site not specified; I11.9 Hypertensive heart disease without heart failure; J44.9 Chronic obstructive pulmonary disease, unspecified; Z86.73 Personal history of transient ischemic attack (TIA), and cerebral infarction without residual deficits; Z79.899 Other long term (current) drug therapy
CPT/HCPCS: 36415; 51702; 80053; 80305; 81001; 85025; 87086; 96365; 99284; G0482; J0696

== ENCOUNTER 2023-11-01 01:00 | Inpatient (IN) | payer OTHER ==
[~2023-11-01] VITALS: Ht 190.5 cm; Wt 123.4 kg
[2023-11-01 01:13] VITALS: BP 114/69; PULSE 85; RESP 16; TEMP 98.3; O2SAT 98
[2023-11-01 03:22] LABS: BASOPHILS # (AUTO) 0.1 K/uL (0.00-0.22); BASOPHILS % (AUTO) 0.5 % (0.0-2.0); EOSINOPHILS # (AUTO) 0.3 K/uL (0-0.4); EOSINOPHILS % (AUTO) 2.4 % (0.0-4.0); HEMATOCRIT 39.9 % (36-52); LYMPHOCYTES # (AUTO) 1.8 K/uL (2.0-11.5); LYMPHOCYTES % (AUTO) 15.9 % (20.5-51.1); MEAN CORPUSCULAR HEMOGLOBIN 28 pg (27-31); MEAN CORPUSCULAR HGB CONC 33 g/dL (33-37); MEAN CORPUSCULAR VOLUME 84.9 fL (80-94); MONOCYTES # (AUTO) 0.8 K/uL (0.8-1.0); MONOCYTES % (AUTO) 7.5 % (1.7-9.3); NEUTROPHILS # (AUTO) 8.2 K/uL (1.8-7.7); NEUTROPHILS % (AUTO) 73.7 % (42.2-75.2); PLATELET COUNT (AUTO) 216 K/uL (140-450); RED CELL DISTRIBUTION WIDTH 17.5 % (11.6-13.7); WHITE BLOOD COUNT (AUTO) 11.2 K/uL (4.8-10.8)
[2023-11-01] MEDS: NACL 0.9% 1,000 ML IV ONE (03:27)
[2023-11-01 03:33] LABS: ANION GAP 12.1 (8-16); CALCIUM 9.3 mg/dL (8.5-10.1); CARBON DIOXIDE 31.1 mmol/L (21-32); CREATININE 1.6 mg/dL (0.6-1.3); POTASSIUM 4.2 mmol/L (3.5-5.1)
[2023-11-01 03:41] LABS: LACTIC ACID 1.4 mmol/L (0.4-2.0)
[2023-11-01 03:56] LABS: ALBUMIN 3.4 g/dL (3.4-5.0); BILIRUBIN,DIRECT 0.2 mg/dL (0.0-0.3); TOTAL BILIRUBIN 0.4 mg/dL (0.0-1.0); TOTAL PROTEIN, SERUM 8.4 g/dL (6.4-8.2)
[2023-11-01 03:57] LABS: APPEARANCE,URINE CLEAR (CLEAR); BILIRUBIN,URINE NEGATIVE (NEGATIVE); BLOOD, URINE 3+ (NEGATIVE); COLOR,URINE YELLOW (YELLOW); LEUKOCYTE ESTERASE ,URINE 2+ (NEGATIVE); NITRITE, URINE POSITIVE (NEGATIVE); PH,URINE 6.5 (5.0-9.0); PROTEIN,URINE 3+ (NEGATIVE); UGLUCOSE 3+ (NEGATIVE)
[2023-11-01 03:59] LABS: BACTERIA,URINE 10-30 (MOD) /HPF (None Seen); MUCUS,URINE 1+ /LPF (None Seen); RBC,URINE TOO NUMEROUS TO COUN /HPF (0-5); SQUAMOUS EPITHELIAL CELL,UR 4-10 (MOD) /LPF (0-3 (FEW))
[2023-11-01] MEDS: ONDANSETRON 4 MG/2 ML VIAL IVP ONE (04:27)
[2023-11-01] MEDS: MORPHINE SULFATE 4 MG/ML SYR IVP ONE (04:28)
[2023-11-01] MEDS ORDERED: cefTRIAXone 1,000 MG VIAL ONE (05:59)
[2023-11-01] MEDS ORDERED: ACETAMINOPHEN 325 MG TAB PO PRN (06:00)
[2023-11-01] MEDS ORDERED: ONDANSETRON 4 MG/2 ML VIAL IVP PRN (06:00)
[2023-11-01] MEDS ORDERED: HYDROcodone/APAP 5/325 MG 1 TAB TAB PO PRN (06:00)
[2023-11-01] MEDS ORDERED: POTASSIUM CHLORIDE 10 MEQ TABER PO PRN (06:00)
[2023-11-01] MEDS: NACL 0.9% 1,000 ML IV SCH (06:34)
[2023-11-01] MEDS: MORPHINE SULFATE 4 MG/ML SYR IVP PRN (08:35)
[2023-11-01 09:00] VITALS: PULSE 89; O2SAT 93
[2023-11-01 10:50] LABS: BASOPHILS % (AUTO) 0.2 % (0.0-2.0); EOSINOPHILS # (AUTO) 0.2 K/uL (0-0.4); EOSINOPHILS % (AUTO) 1.6 % (0.0-4.0); HEMATOCRIT 39.4 % (36-52); HEMOGLOBIN 12.8 g/dL (12.0-18.0); LYMPHOCYTES % (AUTO) 9.3 % (20.5-51.1); MEAN CORPUSCULAR HEMOGLOBIN 28 pg (27-31); MEAN CORPUSCULAR HGB CONC 32 g/dL (33-37); MEAN CORPUSCULAR VOLUME 85.6 fL (80-94); MONOCYTES # (AUTO) 1.1 K/uL (0.8-1.0); MONOCYTES % (AUTO) 10.3 % (1.7-9.3); NEUTROPHILS # (AUTO) 8.8 K/uL (1.8-7.7); NEUTROPHILS % (AUTO) 78.6 % (42.2-75.2); PLATELET COUNT (AUTO) 190 K/uL (140-450); RED CELL DISTRIBUTION WIDTH 17.5 % (11.6-13.7); WHITE BLOOD COUNT (AUTO) 11.2 K/uL (4.8-10.8)
[2023-11-01 11:11] LABS: ANION GAP 10.4 (8-16); CALCIUM 8.5 mg/dL (8.5-10.1); CARBON DIOXIDE 30.5 mmol/L (21-32); CREATININE 1.4 mg/dL (0.6-1.3); POTASSIUM 3.9 mmol/L (3.5-5.1); TOTAL BILIRUBIN 0.4 mg/dL (0.0-1.0); TOTAL PROTEIN, SERUM 7.7 g/dL (6.4-8.2)
[2023-11-01 11:50] LABS: INR 13.23 (0.8-1.2); PROTHROMBIN TIME 122.9 secs (10.8-13.4)
[2023-11-01] MEDS ORDERED: WARF-101 PO (12:03)
[2023-11-01] MEDS ORDERED: WARF7.5T23 PO (12:03)
[2023-11-01] MEDS ORDERED: ASCO500T95 PO ×2 (12:04)
[2023-11-01] MEDS ORDERED: THIA100T45 PO (12:04)
[2023-11-01] MEDS ORDERED: NALT50TA PO (12:08)
[2023-11-01] MEDS ORDERED: SENN-72 PO (12:08)
[2023-11-01 16:00] VITALS: BP 105/66; PULSE 90; RESP 18; TEMP 98.9; O2SAT 95
[2023-11-01] MEDS ORDERED: VITA1TAB44 PO (19:02)
[2023-11-01] MEDS ORDERED: FINA-54 PO (19:02)
[2023-11-01] MEDS ORDERED: CARV3.12 PO (19:02)
[2023-11-01] MEDS ORDERED: EMPA10TA PO (19:02)
[2023-11-01] MEDS ORDERED: GABA300C PO (19:02)
[2023-11-01] MEDS ORDERED: AMLO10TA89 PO (19:02)
[2023-11-01 20:00] VITALS: BP 106/57; PULSE 70; RESP 18; TEMP 98.6; O2SAT 92
[2023-11-01] MEDS: METOPROLOL 25 MG TAB PO SCH (21:00)
[2023-11-01] MEDS: oxyCODONE/APAP 5/325 MG 1 TAB TAB PO PRN (21:59)
[2023-11-01] MEDS: SIMVASTATIN 40 MG TAB PO SCH (22:01)
[2023-11-02 04:00] VITALS: BP 128/78; PULSE 80; RESP 18; TEMP 97.2; O2SAT 96
[2023-11-02 05:11] LABS: BASOPHILS # (AUTO) 0.1 K/uL (0.00-0.22); BASOPHILS % (AUTO) 0.9 % (0.0-2.0); EOSINOPHILS # (AUTO) 0.7 K/uL (0-0.4); EOSINOPHILS % (AUTO) 8.6 % (0.0-4.0); HEMATOCRIT 34.1 % (36-52); HEMOGLOBIN 11.3 g/dL (12.0-18.0); LYMPHOCYTES # (AUTO) 1.6 K/uL (2.0-11.5); LYMPHOCYTES % (AUTO) 19.3 % (20.5-51.1); MEAN CORPUSCULAR HEMOGLOBIN 28 pg (27-31); MEAN CORPUSCULAR HGB CONC 33 g/dL (33-37); MEAN CORPUSCULAR VOLUME 85.1 fL (80-94); MONOCYTES # (AUTO) 0.8 K/uL (0.8-1.0); MONOCYTES % (AUTO) 9.8 % (1.7-9.3); NEUTROPHILS # (AUTO) 5.2 K/uL (1.8-7.7); NEUTROPHILS % (AUTO) 61.4 % (42.2-75.2); PLATELET COUNT (AUTO) 187 K/uL (140-450); RED CELL DISTRIBUTION WIDTH 17.1 % (11.6-13.7); WHITE BLOOD COUNT (AUTO) 8.4 K/uL (4.8-10.8)
[2023-11-02 05:44] LABS: ANION GAP 10.4 (8-16); CALCIUM 8.8 mg/dL (8.5-10.1); CREATININE 1.5 mg/dL (0.6-1.3); POTASSIUM 4.4 mmol/L (3.5-5.1)
[2023-11-02 07:41] LABS: INR 11.6 (0.8-1.2)
[2023-11-02 07:42] LABS: PROTHROMBIN TIME 108.5 secs (10.8-13.4)
[2023-11-02 08:00] VITALS: BP 157/73; PULSE 84; RESP 20; TEMP 97; O2SAT 92; O2SAT 97
[2023-11-02] MEDS: FUROSEMIDE 40 MG TAB PO SCH (09:38)
[2023-11-02] MEDS: TAMSULOSIN 0.4 MG CAP PO SCH (09:38)
[2023-11-02] MEDS: PHYTONADIONE 10 MG/ML AMP SUBQ SCH (18:16)
[2023-11-02 20:00] VITALS: BP 149/74; PULSE 84; RESP 19; RESP 20; TEMP 97.6; O2SAT 100
[2023-11-03 04:00] VITALS: BP 127/53; PULSE 74; RESP 18; TEMP 98.1; O2SAT 95
[2023-11-03 06:18] LABS: BASOPHILS % (AUTO) 0.6 % (0.0-2.0); EOSINOPHILS # (AUTO) 0.6 K/uL (0-0.4); EOSINOPHILS % (AUTO) 8.9 % (0.0-4.0); HEMATOCRIT 31.1 % (36-52); HEMOGLOBIN 10.3 g/dL (12.0-18.0); LYMPHOCYTES # (AUTO) 1.7 K/uL (2.0-11.5); LYMPHOCYTES % (AUTO) 25.2 % (20.5-51.1); MEAN CORPUSCULAR HEMOGLOBIN 28 pg (27-31); MEAN CORPUSCULAR HGB CONC 33 g/dL (33-37); MEAN CORPUSCULAR VOLUME 84.9 fL (80-94); MONOCYTES # (AUTO) 0.6 K/uL (0.8-1.0); MONOCYTES % (AUTO) 9.8 % (1.7-9.3); NEUTROPHILS # (AUTO) 3.7 K/uL (1.8-7.7); NEUTROPHILS % (AUTO) 55.5 % (42.2-75.2); PLATELET COUNT (AUTO) 170 K/uL (140-450); RED BLOOD CELL COUNT(AUTO) 3.66 MIL/uL (4.20-6.10); WHITE BLOOD COUNT (AUTO) 6.6 K/uL (4.8-10.8)
[2023-11-03 08:00] VITALS: BP 111/60; PULSE 60; RESP 18; TEMP 97.1; O2SAT 96; O2SAT 97
[2023-11-03 08:19] LABS: INR 6.2 (0.8-1.2)
[2023-11-03] MEDS: LORazepam 1 MG TAB PO PRN (09:13)
[2023-11-03 09:21] LABS: ANION GAP 18.5 (8-16); CALCIUM 8.9 mg/dL (8.5-10.1); CARBON DIOXIDE 22.4 mmol/L (21-32); CREATININE 1.3 mg/dL (0.6-1.3); POTASSIUM 3.9 mmol/L (3.5-5.1)
[2023-11-03] MEDS ORDERED: GAUZE TP PRN (11:20)
[2023-11-03] MEDS: GAUZE TP SCH (13:31)
[2023-11-03 23:29] VITALS: BP 134/71; PULSE 72; RESP 20; TEMP 98.4; O2SAT 98
[2023-11-03 23:49] VITALS: TEMP 98.2
[2023-11-04 05:21] LABS: BASOPHILS # (AUTO) 0.1 K/uL (0.00-0.22); BASOPHILS % (AUTO) 0.9 % (0.0-2.0); EOSINOPHILS # (AUTO) 0.5 K/uL (0-0.4); EOSINOPHILS % (AUTO) 9.1 % (0.0-4.0); HEMATOCRIT 29.7 % (36-52); HEMOGLOBIN 9.9 g/dL (12.0-18.0); LYMPHOCYTES # (AUTO) 1.6 K/uL (2.0-11.5); LYMPHOCYTES % (AUTO) 26.7 % (20.5-51.1); MEAN CORPUSCULAR HEMOGLOBIN 28 pg (27-31); MEAN CORPUSCULAR HGB CONC 33 g/dL (33-37); MONOCYTES # (AUTO) 0.6 K/uL (0.8-1.0); MONOCYTES % (AUTO) 10.5 % (1.7-9.3); NEUTROPHILS # (AUTO) 3.2 K/uL (1.8-7.7); NEUTROPHILS % (AUTO) 52.8 % (42.2-75.2); PLATELET COUNT (AUTO) 165 K/uL (140-450); RED BLOOD CELL COUNT(AUTO) 3.49 MIL/uL (4.20-6.10); WHITE BLOOD COUNT (AUTO) 6.1 K/uL (4.8-10.8)
[2023-11-04 05:41] VITALS: BP 132/81; PULSE 88; RESP 18; TEMP 98.5
[2023-11-04 05:48] LABS: ANION GAP 13.5 (8-16); CALCIUM 8.6 mg/dL (8.5-10.1); CARBON DIOXIDE 28.4 mmol/L (21-32); CREATININE 1.2 mg/dL (0.6-1.3); INR 1.65 (0.8-1.2); POTASSIUM 3.9 mmol/L (3.5-5.1); PROTHROMBIN TIME 16.9 secs (10.8-13.4)
[2023-11-04 08:00] VITALS: BP 139/61; PULSE 67; RESP 20; TEMP 97.7; O2SAT 100; O2SAT 98
[2023-11-04 16:00] VITALS: BP 138/77; PULSE 67; RESP 20; TEMP 97.9; O2SAT 98
[2023-11-04 19:35] VITALS: BP 138/77; PULSE 67; RESP 20; TEMP 97.9
== END 2023-11-04 19:45 | disposition hospice, home (50) | DRG 917 ==
LOC: MED 01:00 → OBSVTOIN 06:02 → MMU 06:02 → MTU 06:32
PROVIDERS: ADMIT Student in an Organized Health Care Education/Training Program; ATTEND Student in an Organized Health Care Education/Training Program
DX: T45.511A Poisoning by anticoagulants, accidental (unintentional), initial encounter (principal); N17.0 Acute kidney failure with tubular necrosis; D68.32 Hemorrhagic disorder due to extrinsic circulating anticoagulants; N39.0 Urinary tract infection, site not specified; D68.59 Other primary thrombophilia; I13.0 Hypertensive heart and chronic kidney disease with heart failure and stage 1 through stage 4 chronic kidney disease, or unspecified chronic kidney disease; N17.9 Acute kidney failure, unspecified; J44.9 Chronic obstructive pulmonary disease, unspecified; F41.9 Anxiety disorder, unspecified; N18.9 Chronic kidney disease, unspecified; I50.9 Heart failure, unspecified; N40.0 Benign prostatic hyperplasia without lower urinary tract symptoms; Z86.73 Personal history of transient ischemic attack (TIA), and cerebral infarction without residual deficits; R31.9 Hematuria, unspecified
CPT/HCPCS: 36415; 71045; 76770; 80048; 80053; 80076; 81001; 83605; 83735; 85025; 85610; 87040; 87081; 87086; 93005; 96361; 96365; 96375; 99285; J0696; J1644; J2270; J2405; J3430; J7060; Q0092

== ENCOUNTER 2024-03-28 10:26 | Emergency (ER) | payer OTHER ==
[~2024-03-28] VITALS: Ht 188 cm; Wt 108.9 kg
[~2024-03-28 10:26] MED LIST changes: +AMLO10TA89 PO; +ASCO500T95 PO; +CARV3.12 PO; +EMPA10TA PO; +FINA-54 PO; +GABA300C PO; +NALT50TA PO; +SENN-72 PO; +THIA100T45 PO; +VITA1TAB44 PO; +WARF7.5T23 PO
[2024-03-28 10:44] VITALS: BP 152/84; PULSE 84; RESP 20; TEMP 97.3; O2SAT 96
[2024-03-28 13:08] VITALS: BP 152/84; PULSE 84; RESP 20; TEMP 97.3; O2SAT 96
== END 2024-03-28 13:10 | disposition home or self-care (01) ==
LOC: MED 10:26
DX: R33.9 Retention of urine, unspecified (principal); R10.30 Lower abdominal pain, unspecified; I11.0 Hypertensive heart disease with heart failure; I50.9 Heart failure, unspecified; J44.9 Chronic obstructive pulmonary disease, unspecified; Z86.73 Personal history of transient ischemic attack (TIA), and cerebral infarction without residual deficits; Z79.1 Long term (current) use of non-steroidal anti-inflammatories (NSAID); Z79.2 Long term (current) use of antibiotics; Z79.899 Other long term (current) drug therapy; Z98.890 Other specified postprocedural states
CPT/HCPCS: 51702; 99284

== ENCOUNTER 2024-03-28 16:29 | Emergency (ER) | payer OTHER ==
[~2024-03-28] VITALS: Ht 190.5 cm; Wt 113.4 kg
[2024-03-28 16:40] VITALS: BP 136/84; PULSE 78; RESP 15; TEMP 97.9; O2SAT 97
[2024-03-28] MEDS: LORazepam 1 MG TAB PO ONE (17:10)
[2024-03-28 17:56] LABS: BILIRUBIN,URINE NEGATIVE (NEGATIVE); BLOOD, URINE 3+ (NEGATIVE); COLOR,URINE YELLOW (YELLOW); LEUKOCYTE ESTERASE ,URINE 2+ (NEGATIVE); NITRITE, URINE POSITIVE (NEGATIVE); PROTEIN,URINE 2+ (NEGATIVE); UGLUCOSE NEGATIVE (NEGATIVE); UROBILINOGEN,URINE 0.2 EU/dL (0.2 - 1)
[2024-03-28 17:57] LABS: APPEARANCE,URINE SLIGHTLY CLOUDY (CLEAR)
[2024-03-28 17:58] LABS: BACTERIA,URINE 3+ /HPF (None Seen); MUCUS,URINE None Seen /LPF (None Seen); SQUAMOUS EPITHELIAL CELL,UR 4-10 (MOD) /LPF (0-3 (FEW))
[2024-03-28 19:21] VITALS: BP 136/84; PULSE 78; RESP 15; TEMP 97.9; O2SAT 97
== END 2024-03-28 19:14 | disposition home or self-care (01) ==
LOC: MED 16:29
DX: T83.098A Other mechanical complication of other urinary catheter, initial encounter (principal); N39.0 Urinary tract infection, site not specified; I11.0 Hypertensive heart disease with heart failure; I50.9 Heart failure, unspecified; J44.9 Chronic obstructive pulmonary disease, unspecified; Z79.899 Other long term (current) drug therapy; Z79.01 Long term (current) use of anticoagulants; Z79.82 Long term (current) use of aspirin; Z86.73 Personal history of transient ischemic attack (TIA), and cerebral infarction without residual deficits; Y84.6 Urinary catheterization as the cause of abnormal reaction of the patient, or of later complication, without mention of misadventure at the time of the procedure
CPT/HCPCS: 51702; 81001; 87086; 87186; 99284

== ENCOUNTER 2024-03-29 07:07 | Inpatient (IN) | payer OTHER, MEDICAID ==
[~2024-03-29] VITALS: Ht 190.5 cm; Wt 113.4 kg
[2024-03-29 07:09] VITALS: BP 182/92; PULSE 103; RESP 24; TEMP 98.1; O2SAT 95
[2024-03-29 07:51] LABS: BASOPHILS % (AUTO) 0.3 % (0.0-2.0); EOSINOPHILS % (AUTO) 0.4 % (0.0-4.0); HEMATOCRIT 39.2 % (36-52); HEMOGLOBIN 12.8 g/dL (12.0-18.0); LYMPHOCYTES # (AUTO) 1.3 K/uL (2.0-11.5); LYMPHOCYTES % (AUTO) 16.3 % (20.5-51.1); MEAN CORPUSCULAR HEMOGLOBIN 29 pg (27-31); MEAN CORPUSCULAR HGB CONC 33 g/dL (33-37); MEAN CORPUSCULAR VOLUME 87.4 fL (80-94); MONOCYTES # (AUTO) 0.6 K/uL (0.8-1.0); MONOCYTES % (AUTO) 7.5 % (1.7-9.3); NEUTROPHILS # (AUTO) 6.2 K/uL (1.8-7.7); NEUTROPHILS % (AUTO) 75.5 % (42.2-75.2); PLATELET COUNT (AUTO) 142 K/uL (140-450); RED BLOOD CELL COUNT(AUTO) 4.48 MIL/uL (4.20-6.10); RED CELL DISTRIBUTION WIDTH 23.8 % (11.6-13.7); WHITE BLOOD COUNT (AUTO) 8.3 K/uL (4.8-10.8)
[2024-03-29 08:24] LABS: ANION GAP 13.6 (8-16); CALCIUM 9.1 mg/dL (8.5-10.1); CARBON DIOXIDE 25.5 mmol/L (21-32); POTASSIUM 4.1 mmol/L (3.5-5.1)
[2024-03-29 08:33] LABS: ALANINE AMINOTRANSFERASE 16 U/L (12-78); ALBUMIN 3.3 g/dL (3.4-5.0); ALKALINE PHOSPHATASE 114 U/L (50-136); ASPARTATE AMINOTRANSFERASE 28 U/L (15-37); BILIRUBIN,DIRECT 0.3 mg/dL (0.0-0.3); INR 2.11 (0.8-1.2); PROTHROMBIN TIME 21.4 secs (10.8-13.4); TOTAL BILIRUBIN 0.8 mg/dL (0.0-1.0)
[2024-03-29] MEDS: predniSONE 20 MG TAB PO ONE (08:53)
[2024-03-29] MEDS: LABETALOL 20 MG/4 ML VIAL IVP ONE (09:00)
[2024-03-29] MEDS ORDERED: ALBUTEROL SULFATE/IPRATROPIU 3 ML SOL IH ONE (09:01)
[2024-03-29 09:03] VITALS: PULSE 100; RESP 20; O2SAT 95
[2024-03-29] MEDS: ALBUTEROL SULFATE/IPRATROPIU 3 ML SOL IH ONE (09:03)
[2024-03-29] MEDS ORDERED: HYDROcodone/APAP 5/325 MG 1 TAB TAB ONE (10:10)
[2024-03-29] MEDS: HYDROcodone/APAP 5/325 MG 1 TAB TAB PO ONE (10:14)
[2024-03-29 10:15] LABS: BILIRUBIN,URINE NEGATIVE (NEGATIVE); BLOOD, URINE 3+ (NEGATIVE); COLOR,URINE YELLOW (YELLOW); LEUKOCYTE ESTERASE ,URINE 3+ (NEGATIVE); NITRITE, URINE POSITIVE (NEGATIVE); PH,URINE 7.5 (5.0-9.0); PROTEIN,URINE 3+ (NEGATIVE); UGLUCOSE NEGATIVE (NEGATIVE); UROBILINOGEN,URINE 0.2 EU/dL (0.2 - 1)
[2024-03-29 10:32] LABS: APPEARANCE,URINE CLOUDY (CLEAR); RBC,URINE >20 (MANY) /HPF (0-5)
[2024-03-29 10:33] LABS: BACTERIA,URINE 1+ /HPF (None Seen); SQUAMOUS EPITHELIAL CELL,UR 0-3 (FEW) /LPF (0-3 (FEW)); WBC,URINE >25 (MANY) /HPF (0-5)
[2024-03-29 15:45] VITALS: PULSE 97; RESP 18; O2SAT 96
[2024-03-29 16:06] VITALS: BP 178/99; PULSE 97; RESP 18; TEMP 98.2; O2SAT 96
[2024-03-29 16:07] VITALS: PULSE 68
[2024-03-29] MEDS: GABAPENTIN 300 MG CAP PO SCH (17:29)
[2024-03-29] MEDS: diazePAM 5 MG TAB PO SCH (17:29)
[2024-03-29 20:00] VITALS: BP 132/60; PULSE 62; PULSE 77; PULSE 79; RESP 18; TEMP 97.6; O2SAT 97
[2024-03-29] MEDS: carvediloL 3.125 MG TAB PO SCH (20:10)
[2024-03-29] MEDS: SIMVASTATIN 40 MG TAB PO SCH (20:10)
[2024-03-30] VITALS (8 sets, daily range): BP systolic 115–152; BP diastolic 65–80; PULSE 68–100; RESP 18–20; TEMP 96.5–98.2; O2SAT 97–99
[2024-03-30 05:45] LABS: BASOPHILS # (AUTO) 0.2 K/uL (0.00-0.22); EOSINOPHILS % (AUTO) 0.2 % (0.0-4.0); HEMATOCRIT 35.2 % (36-52); HEMOGLOBIN 11.7 g/dL (12.0-18.0); LYMPHOCYTES # (AUTO) 1.5 K/uL (2.0-11.5); LYMPHOCYTES % (AUTO) 16.2 % (20.5-51.1); MEAN CORPUSCULAR HEMOGLOBIN 29 pg (27-31); MEAN CORPUSCULAR HGB CONC 33 g/dL (33-37); MEAN CORPUSCULAR VOLUME 88.1 fL (80-94); MONOCYTES # (AUTO) 0.8 K/uL (0.8-1.0); MONOCYTES % (AUTO) 8.2 % (1.7-9.3); NEUTROPHILS # (AUTO) 6.8 K/uL (1.8-7.7); NEUTROPHILS % (AUTO) 73.4 % (42.2-75.2); PLATELET COUNT (AUTO) 135 K/uL (140-450); RED BLOOD CELL COUNT(AUTO) 3.99 MIL/uL (4.20-6.10); RED CELL DISTRIBUTION WIDTH 23.8 % (11.6-13.7); WHITE BLOOD COUNT (AUTO) 9.3 K/uL (4.8-10.8)
[2024-03-30 06:34] LABS: ALBUMIN 2.8 g/dL (3.4-5.0); ANION GAP 10.4 (8-16); CALCIUM 8.8 mg/dL (8.5-10.1); CARBON DIOXIDE 28.9 mmol/L (21-32); CREATININE 1.4 mg/dL (0.6-1.3); MAGNESIUM 2.1 mg/dL (1.8-2.4); POTASSIUM 4.3 mmol/L (3.5-5.1); TOTAL BILIRUBIN 0.6 mg/dL (0.0-1.0); TOTAL PROTEIN, SERUM 6.4 g/dL (6.4-8.2)
[2024-03-30 07:11] LABS: INR 1.53 (0.8-1.2); PARTIAL THROMBOPLASTIN TIME 33.8 secs (22-35.6); PROTHROMBIN TIME 15.7 secs (10.8-13.4)
[2024-03-30] MEDS ORDERED: WARFARIN 2.5 MG TAB PO SCH (09:00)
[2024-03-30] MEDS: amLODIPine 5 MG TAB PO SCH (09:35)
[2024-03-30] MEDS: ASPIRIN 81 MG TAB.CHEW PO SCH (09:35)
[2024-03-30] MEDS: TAMSULOSIN 0.4 MG CAP PO SCH (09:36)
[2024-03-30] MEDS: VIT-B COMP/VIT-C/FOLIC ACID 1 TAB PO SCH (09:36)
[2024-03-30] MEDS: FINASTERIDE 5 MG TAB PO SCH (09:36)
[2024-03-30] MEDS: SENNA 8.6 MG TAB PO SCH (09:37)
[2024-03-30] MEDS: WARFARIN 5 MG, WARFARIN 2.5 MG PO SCH (18:29)
[2024-03-30] MEDS: WARFARIN 2.5 MG TAB ONE (18:30)
[2024-03-30] MEDS: WARFARIN 5 MG TAB ONE (18:35)
[2024-03-31] VITALS: BP 129/67; PULSE 56; RESP 18; TEMP 98.2; O2SAT 96
[2024-03-31 04:00] VITALS: BP 133/73; PULSE 69; RESP 18; TEMP 98.6; O2SAT 96
[2024-03-31 05:56] LABS: BASOPHILS % (AUTO) 0.6 % (0.0-2.0); EOSINOPHILS # (AUTO) 0.1 K/uL (0-0.4); EOSINOPHILS % (AUTO) 1.6 % (0.0-4.0); HEMATOCRIT 35.9 % (36-52); HEMOGLOBIN 11.7 g/dL (12.0-18.0); LYMPHOCYTES # (AUTO) 1.7 K/uL (2.0-11.5); LYMPHOCYTES % (AUTO) 24.8 % (20.5-51.1); MEAN CORPUSCULAR HEMOGLOBIN 29 pg (27-31); MEAN CORPUSCULAR HGB CONC 33 g/dL (33-37); MONOCYTES # (AUTO) 0.4 K/uL (0.8-1.0); NEUTROPHILS # (AUTO) 4.6 K/uL (1.8-7.7); PLATELET COUNT (AUTO) 118 K/uL (140-450); RED BLOOD CELL COUNT(AUTO) 4.03 MIL/uL (4.20-6.10); WHITE BLOOD COUNT (AUTO) 6.9 K/uL (4.8-10.8)
[2024-03-31 05:58] LABS: INR 1.25 (0.8-1.2); PARTIAL THROMBOPLASTIN TIME 29.2 secs (22-35.6)
[2024-03-31 06:02] LABS: ALBUMIN 2.8 g/dL (3.4-5.0); ANION GAP 9.6 (8-16); CALCIUM 8.8 mg/dL (8.5-10.1); CARBON DIOXIDE 27.8 mmol/L (21-32); CREATININE 1.2 mg/dL (0.6-1.3); MAGNESIUM 2.1 mg/dL (1.8-2.4); POTASSIUM 4.4 mmol/L (3.5-5.1); TOTAL BILIRUBIN 0.5 mg/dL (0.0-1.0); TOTAL PROTEIN, SERUM 6.1 g/dL (6.4-8.2)
[2024-03-31 08:00] VITALS: BP 171/84; PULSE 64; PULSE 71; RESP 20; TEMP 97.6; O2SAT 96; O2SAT 98
[2024-03-31 12:00] VITALS: BP 127/64; PULSE 72; RESP 20; TEMP 99.6; O2SAT 96
[2024-03-31 16:00] VITALS: BP 123/52; PULSE 71; RESP 20; TEMP 98.6; O2SAT 96
[2024-03-31] MEDS: WARFARIN 5 MG TAB PO SCH (17:31)
[2024-03-31 20:00] VITALS: BP 122/62; PULSE 83; RESP 16; TEMP 98.2; O2SAT 94
[2024-03-31] MEDS: CHLORHEXADINE GLUC 2% CLOTH TP SCH (21:00)
[2024-03-31] MEDS: MUPIROCIN CA NASAL 2% 1GM TUBE NS SCH (21:11)
[2024-04-01 04:00] VITALS: BP 160/76; PULSE 66; RESP 19; TEMP 98; O2SAT 98
[2024-04-01 06:16] LABS: BASOPHILS % (AUTO) 0.6 % (0.0-2.0); EOSINOPHILS # (AUTO) 0.2 K/uL (0-0.4); EOSINOPHILS % (AUTO) 2.6 % (0.0-4.0); HEMATOCRIT 36.8 % (36-52); HEMOGLOBIN 12.1 g/dL (12.0-18.0); LYMPHOCYTES # (AUTO) 1.5 K/uL (2.0-11.5); LYMPHOCYTES % (AUTO) 25.1 % (20.5-51.1); MEAN CORPUSCULAR HEMOGLOBIN 29 pg (27-31); MEAN CORPUSCULAR HGB CONC 33 g/dL (33-37); MONOCYTES # (AUTO) 0.5 K/uL (0.8-1.0); MONOCYTES % (AUTO) 7.7 % (1.7-9.3); NEUTROPHILS # (AUTO) 3.8 K/uL (1.8-7.7); PLATELET COUNT (AUTO) 122 K/uL (140-450); RED BLOOD CELL COUNT(AUTO) 4.14 MIL/uL (4.20-6.10)
[2024-04-01 06:41] LABS: ALBUMIN 2.8 g/dL (3.4-5.0); ANION GAP 7.9 (8-16); CALCIUM 8.5 mg/dL (8.5-10.1); CARBON DIOXIDE 30.1 mmol/L (21-32); CREATININE 1.4 mg/dL (0.6-1.3); MAGNESIUM 1.9 mg/dL (1.8-2.4); TOTAL BILIRUBIN 0.5 mg/dL (0.0-1.0); TOTAL PROTEIN, SERUM 6.4 g/dL (6.4-8.2)
[2024-04-01 07:35] LABS: INR 1.51 (0.8-1.2); PARTIAL THROMBOPLASTIN TIME 31.6 secs (22-35.6); PROTHROMBIN TIME 15.5 secs (10.8-13.4)
[2024-04-01 08:00] VITALS: BP_SYST 111; BP_SYST 157; BP_DIAS 58; BP_DIAS 89; PULSE 73; RESP 18; TEMP 96.7; O2SAT 94
[2024-04-01] MEDS: WARFARIN 2.5 MG TAB PO SCH (17:54)
[2024-04-01 20:00] VITALS: BP 114/46; PULSE 66; RESP 18; TEMP 96.7; O2SAT 96
[2024-04-02 04:00] VITALS: BP 148/72; PULSE 70; RESP 19; TEMP 97.7; O2SAT 96
[2024-04-02 06:01] LABS: BASOPHILS % (AUTO) 0.5 % (0.0-2.0); EOSINOPHILS # (AUTO) 0.2 K/uL (0-0.4); EOSINOPHILS % (AUTO) 3.5 % (0.0-4.0); HEMATOCRIT 36.2 % (36-52); HEMOGLOBIN 11.8 g/dL (12.0-18.0); LYMPHOCYTES # (AUTO) 1.5 K/uL (2.0-11.5); LYMPHOCYTES % (AUTO) 22.9 % (20.5-51.1); MEAN CORPUSCULAR HEMOGLOBIN 29 pg (27-31); MEAN CORPUSCULAR HGB CONC 33 g/dL (33-37); MEAN CORPUSCULAR VOLUME 89.2 fL (80-94); MONOCYTES # (AUTO) 0.5 K/uL (0.8-1.0); MONOCYTES % (AUTO) 7.5 % (1.7-9.3); NEUTROPHILS # (AUTO) 4.2 K/uL (1.8-7.7); NEUTROPHILS % (AUTO) 65.6 % (42.2-75.2); PLATELET COUNT (AUTO) 116 K/uL (140-450); RED BLOOD CELL COUNT(AUTO) 4.06 MIL/uL (4.20-6.10); RED CELL DISTRIBUTION WIDTH 23.2 % (11.6-13.7); WHITE BLOOD COUNT (AUTO) 6.4 K/uL (4.8-10.8)
[2024-04-02 06:14] LABS: ALBUMIN 2.7 g/dL (3.4-5.0); ANION GAP 8.9 (8-16); CALCIUM 8.7 mg/dL (8.5-10.1); CARBON DIOXIDE 27.5 mmol/L (21-32); CREATININE 1.3 mg/dL (0.6-1.3); MAGNESIUM 2.1 mg/dL (1.8-2.4); POTASSIUM 4.4 mmol/L (3.5-5.1); TOTAL BILIRUBIN 0.4 mg/dL (0.0-1.0); TOTAL PROTEIN, SERUM 6.3 g/dL (6.4-8.2)
[2024-04-02 06:31] LABS: INR 2.03 (0.8-1.2); PARTIAL THROMBOPLASTIN TIME 33.9 secs (22-35.6); PROTHROMBIN TIME 20.6 secs (10.8-13.4)
[2024-04-02 08:00] VITALS: BP 118/82; PULSE 75; RESP 20; TEMP 97.7; O2SAT 99
[2024-04-02 09:00] VITALS: BP 114/46; PULSE 66; RESP 18; TEMP 96.7; O2SAT 96
[2024-04-02] MEDS ORDERED: DEXTROSE 50% 50 ML SYR IVP PRN (12:15)
[2024-04-02] MEDS ORDERED: INSULIN LISPRO SLIDING SCALE 100 UNITS/ML VIAL SUBQ PRN (12:15)
[2024-04-02 16:00] VITALS: BP 129/51; PULSE 70; RESP 20; TEMP 98.1; O2SAT 99
[2024-04-02] MEDS: WARFARIN 2.5 MG TAB PO SCH (17:18)
[2024-04-02] MEDS: BLOOD GLUCOSE MONITORING 1 DEV DEV FS SCH (17:22)
[2024-04-02 20:00] VITALS: BP 140/59; PULSE 67; RESP 18; TEMP 98.6; O2SAT 100
[2024-04-03 04:00] VITALS: BP 150/75; PULSE 69; RESP 17; TEMP 97.5; O2SAT 99
[2024-04-03 05:39] LABS: BASOPHILS % (AUTO) 0.5 % (0.0-2.0); EOSINOPHILS # (AUTO) 0.2 K/uL (0-0.4); EOSINOPHILS % (AUTO) 3.2 % (0.0-4.0); HEMOGLOBIN 11.9 g/dL (12.0-18.0); LYMPHOCYTES # (AUTO) 1.4 K/uL (2.0-11.5); LYMPHOCYTES % (AUTO) 19.4 % (20.5-51.1); MEAN CORPUSCULAR HEMOGLOBIN 29 pg (27-31); MEAN CORPUSCULAR HGB CONC 33 g/dL (33-37); MEAN CORPUSCULAR VOLUME 88.7 fL (80-94); MONOCYTES # (AUTO) 0.7 K/uL (0.8-1.0); MONOCYTES % (AUTO) 10.4 % (1.7-9.3); NEUTROPHILS # (AUTO) 4.7 K/uL (1.8-7.7); NEUTROPHILS % (AUTO) 66.5 % (42.2-75.2); PLATELET COUNT (AUTO) 117 K/uL (140-450); RED BLOOD CELL COUNT(AUTO) 4.06 MIL/uL (4.20-6.10); RED CELL DISTRIBUTION WIDTH 22.9 % (11.6-13.7); WHITE BLOOD COUNT (AUTO) 7.1 K/uL (4.8-10.8)
[2024-04-03 05:56] LABS: ALBUMIN 2.7 g/dL (3.4-5.0); ANION GAP 10.8 (8-16); CALCIUM 8.9 mg/dL (8.5-10.1); CARBON DIOXIDE 23.8 mmol/L (21-32); CREATININE 1.2 mg/dL (0.6-1.3); MAGNESIUM 2.2 mg/dL (1.8-2.4); POTASSIUM 4.6 mmol/L (3.5-5.1); TOTAL BILIRUBIN 0.4 mg/dL (0.0-1.0); TOTAL PROTEIN, SERUM 6.3 g/dL (6.4-8.2)
[2024-04-03 07:14] LABS: INR 2.42 (0.8-1.2); PROTHROMBIN TIME 24.4 secs (10.8-13.4)
[2024-04-03 08:00] VITALS: BP 140/59; PULSE 67; RESP 18; TEMP 98.6; O2SAT 100
[2024-04-03 13:29] VITALS: BP 131/60; PULSE 66; TEMP 97.3
[2024-04-03] MEDS ORDERED: WARFARIN 2.5 MG TAB PO SCH (17:00)
== END 2024-04-03 14:35 | DRG 291 ==
LOC: MED 07:07 → MMU 13:20 → OBSVTOIN 13:20
PROVIDERS: ADMIT Hospitalist; ATTEND Hospitalist
DX: I13.0 Hypertensive heart and chronic kidney disease with heart failure and stage 1 through stage 4 chronic kidney disease, or unspecified chronic kidney disease (principal); I50.33 Acute on chronic diastolic (congestive) heart failure; N17.9 Acute kidney failure, unspecified; N39.0 Urinary tract infection, site not specified; J81.1 Chronic pulmonary edema; N18.30 Chronic kidney disease, stage 3 unspecified; N40.1 Benign prostatic hyperplasia with lower urinary tract symptoms; J44.9 Chronic obstructive pulmonary disease, unspecified; E78.5 Hyperlipidemia, unspecified; F32.A Depression, unspecified; Z79.01 Long term (current) use of anticoagulants; Z79.82 Long term (current) use of aspirin; Z79.899 Other long term (current) drug therapy; Z95.1 Presence of aortocoronary bypass graft; I25.5 Ischemic cardiomyopathy
CPT/HCPCS: 36415; 51702; 71045; 80048; 80053; 80076; 81001; 82948; 83735; 83880; 84484; 85025; 85610; 85730; 87081; 93005; 94640; 96374; 97110; 97112; 97116; 97530; 99285; J1815; J3490; J7512